=== PATIENT | male | born 1945 | race Caucasian/White ===

== ENCOUNTER 2018-07-14 16:53 | Inpatient (IN) | payer MEDICARE, MEDICAID ==
[~2018-07-14] VITALS: Ht 167.6 cm; Wt 89.0 kg
[2018-07-14 17:48] LABS: Basophils # (auto) 0 uL; Basophils % (auto) 0.7 % (0.0-2.0); Eosinophils # (auto) 0.2 uL; Hematocrit 43.3 % (41.0-53.0); Lymphocytes # (auto) 1.4 uL; Lymphocytes % (auto) 21.5 % (10.0-50.0); Mean Corpuscular Hemoglobin 33.1 pg (28.0-32.0); Mean Corpuscular Hgb Conc. 34.7 g/dL (32.0-36.0); Mean Corpuscular Volume 95.6 fL (80.0-100.0); Monocytes # (auto) 0.6 uL; Neutrophils # (auto) 4.2 uL; Neutrophils % (auto) 64.8 % (37.0-80.0); Nucleated Red Blood Cells % 0.1 %; Platelet Count (auto) 235 10^3/uL (140-450); Red Blood Cells 4.53 10^6/uL (4.5-5.90); Red Cell Distribution Width 13.5 % (11.8-14.3); White Blood Cell 6.5 10^3/uL (4.4-10.8)
[2018-07-14 19:06] LABS: Albumin 3.7 g/dL (3.4-5.0); BUN/Creatinine Ratio 12.8; Calcium 8.8 mg/dL (8.5-10.1); Potassium 3.1 mmol/L (3.5-5.1)
[2018-07-14 19:09] LABS: Bilirubin, Total 0.6 mg/dL (0.2-1.0); Total Protein 7.6 g/dL (6.4-8.2)
[2018-07-14] MEDS ORDERED: VANCOMYCIN 1GM/250ML 250 ML IV ONE ×2 (20:00)
[2018-07-14] MEDS ORDERED: POTASSIUM CHL 20 Meq TABLET PO ONE (21:45)
[2018-07-14] MEDS ORDERED: DOCUSATE SOD 100 MG CAP PO PRN (21:45)
[2018-07-14] MEDS ORDERED: ACETAMINOPHEN 325 MG TAB PO PRN (21:45)
[2018-07-14] MEDS ORDERED: cefTRIAXone 1GM/10ml IVPUSH 10 ML IV ONE (21:45)
[2018-07-14] MEDS ORDERED: HYDROcodone-ACET 5/325MG TAB PO PRN (21:45)
[2018-07-14] MEDS ORDERED: TEMAZEPAM 15 MG CAP PO PRN (21:45)
[2018-07-14] MEDS ORDERED: cloNIDine HCL 0.1 MG TAB PO PRN (21:45)
[2018-07-14] MEDS ORDERED: ONDANSETRON HCL 4 MG/2 ML VIAL IV PRN (21:45)
[2018-07-14] MEDS: CLINDAMYCIN 600MG IV 50 ML IV SCH (22:00)
[2018-07-14] MEDS: FAMOTIDINE 20 MG TAB PO SCH (22:25)
[2018-07-14] MEDS: PRAVASTATIN SODIUM 20 MG TAB PO SCH (22:30)
[2018-07-14 23:00] VITALS: BP 150/86
[2018-07-15 05:00] VITALS: BP 135/71
[2018-07-15 05:14] LABS: Basophils # (auto) 0 uL; Basophils % (auto) 0.9 % (0.0-2.0); Eosinophils # (auto) 0.2 uL; Eosinophils % (auto) 3.2 % (0.0-7.0); Hematocrit 39.3 % (41.0-53.0); Hemoglobin 13.8 g/dL (13.5-17.5); Lymphocytes # (auto) 1.2 uL; Lymphocytes % (auto) 23.9 % (10.0-50.0); Mean Corpuscular Hemoglobin 33.5 pg (28.0-32.0); Mean Corpuscular Hgb Conc. 35.2 g/dL (32.0-36.0); Monocytes # (auto) 0.5 uL; Monocytes % (auto) 9.7 % (0.0-12.0); Neutrophils # (auto) 3.2 uL; Neutrophils % (auto) 62.3 % (37.0-80.0); Nucleated Red Blood Cells % 0.1 %; Platelet Count (auto) 204 10^3/uL (140-450); Red Blood Cells 4.14 10^6/uL (4.5-5.90); Red Cell Distribution Width 13.2 % (11.8-14.3); White Blood Cell 5.1 10^3/uL (4.4-10.8)
[2018-07-15 05:35] LABS: Albumin 3.4 g/dL (3.4-5.0); Bilirubin, Total 0.7 mg/dL (0.2-1.0); Calcium 8.6 mg/dL (8.5-10.1); Potassium 3.1 mmol/L (3.5-5.1); Total Protein 6.9 g/dL (6.4-8.2)
[2018-07-15] MEDS: CLINDAMYCIN 600MG IV 50 ML IV SCH (06:15)
[2018-07-15] MEDS: LEVOTHYROXINE SODIUM 25 MCG TAB PO SCH (06:53)
[2018-07-15] MEDS ORDERED: HYDR10TA26 PO (08:12)
[2018-07-15] MEDS ORDERED: SIMV10TA84 PO (08:12)
[2018-07-15] MEDS ORDERED: METO25TA5 PO (08:12)
[2018-07-15] MEDS ORDERED: CLON0.1T PO (08:12)
[2018-07-15] MEDS ORDERED: RIV20T PO (08:12)
[2018-07-15] MEDS ORDERED: DOCU100C8 PO (08:12)
[2018-07-15] MEDS ORDERED: ACET250T3 PO (08:12)
[2018-07-15] MEDS ORDERED: FAMO-12 PO (08:12)
[2018-07-15] MEDS ORDERED: ARTISOL13 EACHEYE (08:12)
[2018-07-15] MEDS ORDERED: TRIA0.1P11 TOP (08:12)
[2018-07-15] MEDS ORDERED: ONDA4TAB5 PO (08:12)
[2018-07-15] MEDS ORDERED: GUAI-16 PO (08:12)
[2018-07-15] MEDS ORDERED: SERT-274 PO (08:12)
[2018-07-15] MEDS ORDERED: CARV3.1240 PO (08:12)
[2018-07-15] MEDS ORDERED: AMLO5TAB13 PO (08:12)
[2018-07-15 09:00] VITALS: BP 144/76
[2018-07-15] MEDS ORDERED: cefTRIAXone 1GM/10ml IVPUSH 10 ML IV SCH (09:00)
[2018-07-15] MEDS: FAMOTIDINE 20 MG TAB PO SCH ×2 (09:43→22:05)
[2018-07-15] MEDS: HCTZ 25 MG TAB PO SCH (09:44)
[2018-07-15] MEDS: CARVEDILOL 3.125 MG TAB PO SCH ×2 (09:46→22:05)
[2018-07-15] MEDS: amLODIPine BESYLATE 5 MG TAB PO SCH (10:00)
[2018-07-15] MEDS ORDERED: ENOXAPARIN SOD 40 MG/0.4 ML SYRINGE SC SCH (10:00)
[2018-07-15 13:00] VITALS: BP 140/72
[2018-07-15] MEDS ORDERED: VANCOMYCIN PER PHARMACY 0 MG IV SCH (13:30)
[2018-07-15] MEDS ORDERED: POTASSIUM CHL 20 Meq TABLET PO ONE (13:45)
[2018-07-15] MEDS: VANCOMYCIN 1GM/250ML 250 ML IV SCH (15:00)
[2018-07-15 17:00] VITALS: BP 159/91
[2018-07-15] MEDS: RIVAROXABAN 20 MG TAB PO SCH (18:00)
[2018-07-15 21:49] VITALS: BP_SYST 125; BP_SYST 91; BP_DIAS 57; BP_DIAS 73
[2018-07-15] MEDS: PRAVASTATIN SODIUM 20 MG TAB PO SCH (22:05)
[2018-07-15] MEDS: SERTRALINE HCL 50 MG TAB PO SCH (22:06)
[2018-07-16] MEDS: VANCOMYCIN 1GM/250ML 250 ML IV SCH (02:48)
[2018-07-16 04:57] VITALS: BP 146/67
[2018-07-16] MEDS: LEVOTHYROXINE SODIUM 25 MCG TAB PO SCH (06:12)
[2018-07-16 09:00] VITALS: BP 134/73
[2018-07-16] MEDS: FAMOTIDINE 20 MG TAB PO SCH ×2 (10:18→21:02)
[2018-07-16] MEDS: HCTZ 25 MG TAB PO SCH (10:19)
[2018-07-16] MEDS: amLODIPine BESYLATE 5 MG TAB PO SCH (10:20)
[2018-07-16] MEDS: CARVEDILOL 3.125 MG TAB PO SCH ×2 (10:20→21:03)
[2018-07-16 13:00] VITALS: BP 149/85
[2018-07-16] MEDS ORDERED: POTASSIUM CHL 20 Meq TABLET PO ONE (13:30)
[2018-07-16] MEDS: SULFAMETHOX W/TRIMETH(800/160MG) DS TAB PO SCH ×2 (13:34→21:02)
[2018-07-16 17:00] VITALS: BP 154/83
[2018-07-16] MEDS: RIVAROXABAN 20 MG TAB PO SCH (18:00)
[2018-07-16] MEDS: PRAVASTATIN SODIUM 20 MG TAB PO SCH (21:02)
[2018-07-16] MEDS: SERTRALINE HCL 50 MG TAB PO SCH (21:02)
[2018-07-16 21:41] VITALS: BP 156/74
[2018-07-17 05:58] VITALS: BP 151/72
[2018-07-17] MEDS: LEVOTHYROXINE SODIUM 25 MCG TAB PO SCH (06:07)
[2018-07-17 06:35] LABS: Basophils # (auto) 0 uL; Basophils % (auto) 0.4 % (0.0-2.0); Eosinophils # (auto) 0.2 uL; Eosinophils % (auto) 3.9 % (0.0-7.0); Hematocrit 45.4 % (41.0-53.0); Hemoglobin 15.9 g/dL (13.5-17.5); Lymphocytes # (auto) 0.9 uL; Lymphocytes % (auto) 17.4 % (10.0-50.0); Mean Corpuscular Hemoglobin 33.7 pg (28.0-32.0); Mean Corpuscular Hgb Conc. 35.1 g/dL (32.0-36.0); Mean Corpuscular Volume 96.1 fL (80.0-100.0); Monocytes # (auto) 0.5 uL; Monocytes % (auto) 9.8 % (0.0-12.0); Neutrophils # (auto) 3.4 uL; Neutrophils % (auto) 68.5 % (37.0-80.0); Nucleated Red Blood Cells % 0.1 %; Platelet Count (auto) 218 10^3/uL (140-450); Red Blood Cells 4.72 10^6/uL (4.5-5.90); Red Cell Distribution Width 13.3 % (11.8-14.3)
[2018-07-17 06:54] LABS: BUN/Creatinine Ratio 14.4; Potassium 3.7 mmol/L (3.5-5.1)
[2018-07-17 09:00] VITALS: BP 146/72
[2018-07-17] MEDS: SULFAMETHOX W/TRIMETH(800/160MG) DS TAB PO SCH ×2 (09:24→20:11)
[2018-07-17] MEDS: amLODIPine BESYLATE 5 MG TAB PO SCH (09:24)
[2018-07-17] MEDS: CARVEDILOL 3.125 MG TAB PO SCH ×2 (09:24→20:16)
[2018-07-17] MEDS: HCTZ 25 MG TAB PO SCH (09:24)
[2018-07-17] MEDS: FAMOTIDINE 20 MG TAB PO SCH ×2 (09:25→20:15)
[2018-07-17 13:00] VITALS: BP 147/89
[2018-07-17 14:02] VITALS: BP 147/89
[2018-07-17 17:00] VITALS: BP 153/84
[2018-07-17] MEDS: RIVAROXABAN 20 MG TAB PO SCH (17:43)
[2018-07-17] MEDS: PRAVASTATIN SODIUM 20 MG TAB PO SCH (20:11)
[2018-07-17] MEDS: SERTRALINE HCL 50 MG TAB PO SCH (20:13)
== END 2018-07-17 21:20 | disposition home or self-care (01) | DRG 603 ==
LOC: EDBD 16:53 → ER 17:00 → WEST WING 17:01
PROVIDERS: ADMIT Nurse Practitioner; ATTEND Internal Medicine Pulmonary Disease
DX: L03.115 Cellulitis of right lower limb (principal); I69.351 Hemiplegia and hemiparesis following cerebral infarction affecting right dominant side; E66.9 Obesity, unspecified; E87.6 Hypokalemia; I10 Essential (primary) hypertension; E78.5 Hyperlipidemia, unspecified; L02.415 Cutaneous abscess of right lower limb; E03.9 Hypothyroidism, unspecified; Z79.899 Other long term (current) drug therapy; I69.322 Dysarthria following cerebral infarction; Z79.01 Long term (current) use of anticoagulants; Z68.31 Body mass index [BMI] 31.0-31.9, adult
CPT/HCPCS: 36415; 71045; 80048; 80053; 84132; 85025; 85379; 87040; 87081; 93971; 96365; 96367; 96375; J0696; J3490